=== PATIENT | male | born 1980 | race Hispanic/Latino ===

== ENCOUNTER 2016-11-22 10:28 | Emergency (ER) | payer OTHER ==
[2016-11-22 10:48] VITALS: BP 130/84; PULSE 112; RESP 20; TEMP 98; O2SAT 99
--- NOTE | 2016-11-22 11:02 | ED PDOC ---
Upper Extremity Pain/Injury Time Seen by Provider: 11/22/16 11:00 Chief Complaint (Nursing): Finger,Hand,&Wrist Chief Complaint (Provider): hand injury History Per: Patient (36 y/o male here with left hand injury 2 days ago when hand became stuck between heavy boxes at clinic. Notes worsening pain. Notes scab over hand.) Past Medical History Reviewed: Historical Data, Nursing Documentation, Vital Signs Vital Signs: Last Vital Signs Temp 98.0 F 11/22/16 10:45 Pulse 112 H 11/22/16 10:45 Resp 20 11/22/16 10:45 BP 130/84 11/22/16 10:45 Pulse Ox 99 11/22/16 10:45 - Family History Family History: States: No Known Family Hx - Home Medications Home Medications: Ambulatory Orders Medication Instructions Recorded Ibuprofen [Motrin] 600 mg PO Q8 PRN #15 tab 11/22/16 - Allergies Allergies/Adverse Reactions: Allergies Allergy/AdvReac Type Severity Reaction Status Date / Time No Known Allergies Allergy Verified 11/22/16 10:45 Review of Systems ROS Statement: Except As Marked, All Systems Reviewed And Found Negative Physical Exam - Reviewed Nursing Documentation Reviewed: Yes Vital Signs Reviewed: Yes - Physical Exam Appears: Positive for: Well, Non-toxic, No Acute Distress Head Exam: Positive for: ATRAUMATIC, NORMAL INSPECTION, NORMOCEPHALIC Skin: Positive for: Normal Color, Warm, DRY Eye Exam: Positive for: EOMI, Normal appearance, PERRL ENT: Positive for: Normal ENT Inspection Neck: Positive for: Normal, Painless ROM Cardiovascular/Chest: Positive for: Regular Rate, Rhythm Respiratory: Positive for: CNT, Normal Breath Sounds Gastrointestinal/Abdominal: Positive for: Normal Exam, Bowel Sounds, Soft Back: Positive for: Normal Inspection Extremity: Positive for: Normal ROM, Other (scab noted dorsal surface. swelling noted. tender dorsum of mid-hand/wrist.) Neurologic/Psych: Positive for: Alert, Oriented - ECG O2 Sat by Pulse Oximetry: 99 - Progress ED Course And Treament: Tdap 0.5 ml IM x 1 dose MOtrin 600 mg x 1 dose xry of hand: neg for fx xry of wrist: neg for fx Placed in wrist splint. Disposition - Clinical Impression Clinical Impression: Wrist injury - Patient ED Disposition Is Patient to be Admitted: No - Disposition Referrals: Esther Lott MD [Staff Provider] - Disposition: Routine/Home Disposition Time: 11:57 Condition: FAIR Prescriptions: Ibuprofen [Motrin] 600 mg PO Q8 PRN #15 tab PRN Reason: Pain, Severe (8-10) Instructions: Wrist Injury (ED) Forms: [facility] (Turkmen), [facility] ED School/Work Excuse
--- NOTE | 2016-11-22 12:46 | RAD ---
PROCEDURE: Left Wrist Radiographs. HISTORY: wrist injury COMPARISON: None. FINDINGS: BONES: Normal. No fracture. JOINTS: Normal. No dislocation. SOFT TISSUES: Normal. OTHER FINDINGS: None. IMPRESSION: No acute findings related to/accounting for the clinical presentation. No preliminary report provided by emergency department personnel.
--- NOTE | 2016-11-22 13:23 | RAD ---
PROCEDURE: Left Hand Radiographs. HISTORY: hand injury COMPARISON: None. FINDINGS: BONES: Normal. No fracture. JOINTS: Normal. No osteoarthritic changes. SOFT TISSUES: Normal. OTHER FINDINGS: None. IMPRESSION: No acute findings related to/accounting for the clinical presentation. No preliminary report provided by emergency department personnel.
== END 2016-11-22 12:34 | disposition home or self-care (01) ==
LOC: H.ER 10:28
DX: S69.91XA Unspecified injury of right wrist, hand and finger(s), initial encounter (principal); W22.8XXA Striking against or struck by other objects, initial encounter; Y99.0 Civilian activity done for income or pay